=== PATIENT | female | born 1935 | race Caucasian/White ===

== ENCOUNTER 2023-11-04 19:13 | Emergency (ER) | payer MEDICARE, MEDICAID, SELFPAY ==
[2023-11-04 19:13] VITALS: BP 185/116
[2023-11-04 19:25] VITALS: BP 185/116; PULSE 84; TEMP 37.1; O2SAT 97; BMI 21.6
--- NOTE | 2023-11-04 19:27 | CT_ITS ---
The [address] [address] Patient Name: KIKI DAVILA MRN: [id number] date: 1935 Sex: F Assigned Patient Location: ER Current Patient Location: ER Accession/Order Number: [id number] Exam Date: 11/04/2023 19:45 Report Date: 11/04/2023 20:57 At the request of: VIVI YIP Procedure: CT cervical spine wo con CT cervical spine wo con 11/04/2023 6:45 PM CDT: History: fall Neck Pain Comparison: None. Technique: Unenhanced CT imaging of the cervical spine. This CT exam was performed using one or more of the following dose reduction techniques: Automated exposure control, adjustment of the mA and/or KV according to patient size, or use of iterative reconstruction technique. Findings: The cervical vertebral bodies maintain normal height and alignment. There is no fracture or dislocation. The prevertebral soft tissues and predental space are normal. The facet joints are aligned bilaterally. The atlantooccipital articulation is normal bilaterally. 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 There is atherosclerotic plaque in the carotid bifurcation bilaterally. CT/CT cervical spine wo con Impression: 1. No acute abnormality of the cervical spine. Electronically authenticated by: RK ISSA Date: 11/04/2023 20:57
--- NOTE | 2023-11-04 19:27 | CT_ITS ---
The [address] [address] Patient Name: KIKI DAVILA MRN: [id number] date: 1935 Sex: F Assigned Patient Location: ED.MAIN Current Patient Location: ED.MAIN Accession/Order Number: [id number] Exam Date: 11/04/2023 19:45 Report Date: 11/04/2023 21:19 At the request of: VIVI YIP Procedure: CT head/brain wo con Head CT 11/04/2023 6:45 PM CDT History: fall, hit forehead. Fall with head injury. Head trauma. Comparison: None. Technique: Unenhanced CT imaging of the head. This CT exam was performed using one or more of the following dose reduction techniques: Automated exposure control, adjustment of the mA and/or KV according to patient size, or use of iterative reconstruction technique. Findings: There is no evidence of acute intracranial abnormality. Specifically, there is no evidence of acute hemorrhage, infarct, contusion, hydrocephalus, midline shift, or abnormal extra-axial collection. There is diffuse atrophy with proportionate ventriculomegaly. Low attenuation in the periventricular white matter is nonspecific but likely reflects changes of chronic ischemic small vessel white matter disease. The calvarium is intact. CT/CT head/brain wo con Impression: 1. No acute intracranial abnormality. 2. Diffuse atrophy with proportionate ventriculomegaly. 3. 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 Electronically authenticated by: RK ISSA Date: 11/04/2023 21:19
--- NOTE | 2023-11-04 19:29 | ED.FALL1 ---
HPI HPI - Fall General Chief Complaint: Fall Stated Complaint: FALL Time Seen by Provider: 11/04/23 19:16 Source: patient and other Source comment: EMS report Mode of arrival: ambulance Limitations comment: dementia History of Present Illness HPI Narrative: 88-year-old female presents for an apparent fall and bruise on her forehead. She has dementia and cannot provide any history. She lives in assisted and the fall was reported by another resident. It reportedly happened just before coming into the emergency department. She does not seem to have any complaints. No further history is available. Related Data Home Medications ?Medication ?Instructions ?Recorded ?Confirmed aspirin 81 mg capsule 81 mg PO DAILY 11/04/23 11/04/23 carbidopa ER 25 mg-levodopa 100 mg 1 tab PO BID 11/04/23 11/04/23 tablet,extended release cholecalciferol (vitamin D3) 50 50 mcg PO DAILY 11/04/23 11/04/23 mcg (2,000 unit) capsule docusate sodium 100 mg capsule 100 mg PO DAILY 11/04/23 11/04/23 (Colace) lisinopril 10 mg tablet 10 mg PO DAILY 11/04/23 11/04/23 magnesium aspart,citrate,oxide mg PO 11/04/23 metformin 500 mg tablet 500 mg PO DAILY 11/04/23 11/04/23 metoprolol tartrate 25 mg tablet 25 mg PO BID 11/04/23 11/04/23 pantoprazole 40 mg tablet,delayed 40 mg PO DAILY 11/04/23 11/04/23 release (Protonix) pediatric pgeaxydm-[id number]-qzu 1 tab PO DAILY 11/04/23 11/04/23 (Multi-Vitamins with Iron chewable tablet) quetiapine 25 mg tablet (Seroquel) 25 mg PO DAILY 11/04/23 11/04/23 sertraline 25 mg tablet 25 mg PO DAILY 11/04/23 11/04/23 sodium chloride 1,000 mg soluble 1,000 mg PO DAILY 11/04/23 11/04/23 tablet ziprasidone HCl 20 mg capsule 20 mg PO BID 11/04/23 11/04/23 (Geodon) Allergies Allergy/AdvReac Type Severity Reaction Status Date / Time buspirone [From BuSpar] Allergy Verified 11/04/23 19:30 donepezil [From Aricept] Allergy Verified 11/04/23 19:30 hydrocodone Allergy Verified 11/04/23 19:30 morphine Allergy Verified 11/04/23 19:30 temazepam [From Restoril] Allergy Verified 11/04/23 19:30 Opioid HPI Opioid Management Most Recent Pain and Opioid Data: No Data to Display Review of Systems ROS Narrative Unobtainable, dementia Exam Narrative Exam Narrative: Nurses note and vital signs reviewed and patient is not hypoxic. General: The patient appears well and in no apparent distress. She is conversant. Skin: Warm, dry, no pallor noted. There is no rash noted. Head: Normocephalic, bruise present on the mid forehead, no laceration. Cervical spine does not seem to be tender. Eye: Normal conjunctiva, no drainage Ears, Nose, Mouth, and Throat: oral mucosa is moist. Nares patent. Cardiovascular: Regular Rate and Rhythm Respiratory: Patient is in no distress, no accessory muscle use, lungs are clear to auscultation, no wheezing, rales or rhonchi Back: non-tender, including the cervical thoracic and lumbar spines GI: Soft and nontender Musculoskeletal: All extremity joints have good range of motion and no palpable tenderness Neurological: Awake and alert. She knows her name. She knows she is in a hospital but does not know which 1. She does not know why she is here and she does not know the year. Psychiatric: Cooperative Constitutional Vital Signs, click to edit/add: Last Vital Signs Temp 98.7 F 11/04/23 19:25 Pulse 84 11/04/23 19:25 Resp 16 11/04/23 19:25 BP 185/116 H 11/04/23 19:25 Pulse Ox 97 11/04/23 19:25 O2 Del Method Room Air 11/04/23 19:25 Course Vital Signs Vital signs: Vital Signs Temperature 98.7 F 11/04/23 19:25 Pulse Rate 84 11/04/23 19:25 Respiratory Rate 16 11/04/23 19:25 Blood Pressure 185/116 H 11/04/23 19:25 Pulse Oximetry 97 11/04/23 19:25 Oxygen Delivery Method Room Air 11/04/23 19:25 Temperature 98.7 F 11/04/23 19:25 Pulse Rate 84 11/04/23 19:25 Respiratory Rate 16 06/10/24 19:25 Blood Pressure 185/116 H 11/04/23 19:25 Pulse Oximetry 97 11/04/23 19:25 Oxygen Delivery Method Room Air 11/04/23 19:25 MDM - Fall MDM Narrative Medical decision making narrative: CT of C-spine and brain are negative. X-ray of the hip also was negative. The patient initially did not complain of any hip pain and then she complained of hip pain and then she stated it did not hurt anymore. She has dementia so it is difficult getting an accurate history. Nonetheless she has been able to bear weight and I do not suspect an occult fracture at this point. Treatment diagnosis and follow-up were discussed with the patient. Differential Diagnosis Differential diagnosis: Likely other (Intracranial hemorrhage, forehead contusion, C-spine fracture) Imaging Data CT scan - head: Radiologist's impression: ITS Impressions Cervical Spine CT 11/04/23 19:27 Impression: 1. No acute abnormality of the cervical spine. Electronically authenticated by: RK ISSA Date: 11/04/2023 20:[address] 11/04/23 19:27 Impression: 1. No acute intracranial abnormality. 2. Diffuse atrophy with proportionate ventriculomegaly. 3. 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 Electronically authenticated by: RK ISSA Date: 11/04/2023 21:19 Hip X-Ray 11/04/23 19:59 IMPRESSION: No fracture or dislocation left hip. Electronically authenticated by: JOSE MARIA REYNOSO Date: 11/04/2023 21:25 ECG Data Attestation: I personally reviewed and interpreted this ECG as follows: (EKG on my interpretation shows sinus rhythm with a rate of 74 and no acute change) Discharge Plan Discharge Stand Alone Forms: Portal Instructions Chief Complaint: Fall Clinical Impression: Fall, Forehead contusion Patient Disposition: Home, Self-Care Time of Disposition Decision: 21:33 Condition: Good Mode of Transportation: Private Vehicle Prescriptions / Home Meds: No Action aspirin 81 mg capsule 81 mg PO DAILY docusate sodium [Colace] 100 mg capsule 100 mg PO DAILY ziprasidone HCl [Geodon] 20 mg capsule 20 mg PO BID Rx Instructions: give with food (meal/snack) lisinopril 10 mg tablet 10 mg PO DAILY magnesium aspart,citrate,oxide 400 mg magnesium capsule PO metformin 500 mg tablet 500 mg PO DAILY metoprolol tartrate 25 mg tablet 25 mg PO BID pantoprazole [Protonix] 40 mg tablet,delayed release (DR/EC) 40 mg PO DAILY quetiapine [Seroquel] 25 mg tablet 25 mg PO DAILY sertraline 25 mg tablet 25 mg PO DAILY carbidopa-levodopa 25-100 mg tablet extended release 1 tab PO BID sodium chloride 1,000 mg tablet,soluble 1,000 mg PO DAILY Multi-Vitamins with Iron Tablet,Chewable 1 tab PO DAILY Rx Instructions: administer with a meal cholecalciferol (vitamin D3) 50 mcg (2,000 unit) capsule 50 mcg PO DAILY Print Language: Welsh Instructions: Fall Prevention for Older Adults (ED), Facial Contusion (ED) Referrals: MICHAEL JULES [Primary Care Provider] - 1 week
[2023-11-04 19:30] VITALS: PULSE 75
[2023-11-04 19:40] VITALS: PULSE 80
--- NOTE | 2023-11-04 19:59 | XR_ITS ---
[place] [id number] Patient Name: KIKI DAVILA MRN: [id number] date: 1935 Sex: F Assigned Patient Location: ER Current Patient Location: ER Accession/Order Number: [id number] Exam Date: 11/04/2023 20:20 Report Date: 11/04/2023 21:25 At the request of: VIVI YIP Procedure: XR hip LT min 2V EXAM: XR hip LT min 2V , 11/04/2023 HISTORY: fall COMPARISON: None. TECHNIQUE: X-rays of the left hip 2 views FINDINGS: No fracture or dislocation left hip. Mild degenerative changes left hip joint. Atherosclerotic calcification of the femoral artery. No obvious soft tissue swelling. Mild osteopenia. XR/XR hip LT min 2V IMPRESSION: No fracture or dislocation left hip. Electronically authenticated by: JOSE MARIA REYNOSO Date: 11/04/2023 21:25
--- NOTE | 2023-11-04 19:59 | PC.NURSE ---
Pt project management consultant light, when this nurse responds to room pt states she is having pain at the top of her let femur/hip area Pt had previously ambulated with the assistance of this nurse and one other pt was steady on ambulation This nurse asked pt to describe the pain and pt repeatedly just held the leg stating it hurts, it hurts This was relayed to Dr. Pak as well as pt's nurse
[2023-11-04 22:13] VITALS: BP 167/98; O2SAT 98
--- NOTE | 2023-11-04 22:24 | PC.NURSE ---
Patient was up and down, attempting to get out of bed on her own several times. A bed alarm was applied to patient in an attempt to keep her safe. She was taken to the bathroom several times, she was given snacks, she was distracted with television. Once Dr. Pak had cleared her scans, she was re-dressed, but continued to climb out of bed. Report was called to the detention the patient came from as soon as [facility] arrived, and the patient was sent back home.
--- NOTE | 2023-11-04 23:46 | ECG_ITS ---
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
== END 2023-11-04 22:29 | disposition home or self-care (01) ==
PROVIDERS: Emergency Provider Emergency Medicine; Family Provider Family Medicine; PCP Family Medicine
DX: S00.83XA Contusion of other part of head, initial encounter (principal); W19.XXXA Unspecified fall, initial encounter; F03.90 Unspecified dementia, unspecified severity, without behavioral disturbance, psychotic disturbance, mood disturbance, and anxiety
CPT/HCPCS: 70450; 72125; 73502; 93005; 99284